=== PATIENT | female | born 2000 | race Caucasian/White ===

== ENCOUNTER 2023-07-10 13:45 | Emergency (ER) | payer OTHER ==
[~2023-07-10] VITALS: Ht 160 cm; Wt 53.4 kg
[2023-07-10 16:43] LABS: APPEARANCE, URINE HAZY (CLEAR); BACTERIA, URINE AUTO 1+ (NEGATIVE); BILIRUBIN, URINE AUTO NEGATIVE (NEGATIVE); BLOOD, URINE BLOOD NEGATIVE (NEGATIVE); COLOR, URINE YELLOW (YELLOW); GLUCOSE, URINE (UA) AUTO NEGATIVE (NEGATIVE); KETONE, URINE AUTO NEGATIVE (NEGATIVE); LEUKOCYTE ESTERASE, URINE AUTO 3+ (NEGATIVE); MUCUS, URINE SMALL (NEGATIVE); NITRITE, URINE AUTO NEGATIVE (NEGATIVE); PROTEIN, URINE AUTO 1+ mg/dL (NEGATIVE); RBC, URINE AUTO 10 /HPF (0-3); SPECIFIC GRAVITY URINE AUTO 1.021 (1.002-1.035); SQUAMOUS EPITHELIAL CELL UR AU 4 /HPF (0-6); UROBILINOGEN, URINE AUTO 0.2 mg/dL (0.0-2.0); WBC, URINE AUTO 6 /HPF (0-3)
[2023-07-10] MEDS ORDERED: MACR100C43 PO (17:17)
[2023-07-10] MEDS ORDERED: DIFL200T PO (17:17)
[2023-07-10 17:30] VITALS: BP 114/76; TEMP 96.8; O2SAT 98
== END 2023-07-10 17:39 | disposition home or self-care (01) ==
LOC: M ED 13:45
DX: N39.0 Urinary tract infection, site not specified (principal); B37.31 Acute candidiasis of vulva and vagina

== ENCOUNTER 2023-08-29 08:31 | Emergency (ER) | payer OTHER ==
[~2023-08-29] VITALS: Ht 160 cm; Wt 55.1 kg
[~2023-08-29 08:31] MED LIST: DIFL200T PO; MACR100C43 PO
[2023-08-29] MEDS ORDERED: BENZ200C70 PO (10:23)
[2023-08-29 10:38] VITALS: BP 102/62; TEMP 98; O2SAT 100
== END 2023-08-29 10:41 | disposition home or self-care (01) ==
LOC: M ED 08:31
DX: J06.9 Acute upper respiratory infection, unspecified (principal); B34.8 Other viral infections of unspecified site; Z79.899 Other long term (current) drug therapy

== ENCOUNTER 2024-11-24 09:26 | Emergency (ER) | payer OTHER ==
[~2024-11-24] VITALS: Ht 157.5 cm; Wt 52.6 kg
[~2024-11-24 09:26] MED LIST changes: +BENZ200C70 PO
[2024-11-24] MEDS: NS (Normal Saline) 0.9% 1,000 ML IV ONE (11:03)
[2024-11-24] MEDS: KETOROLAC 30 MG/ML 1 ML VIAL IV ONE (11:05)
[2024-11-24] MEDS: ACETAMINOPHEN *IV* 1,000 MG in IV 1 EA IV ONE (11:57)
[2024-11-24 12:42] VITALS: BP 99/59; TEMP 97.6; O2SAT 100
== END 2024-11-24 12:59 | disposition home or self-care (01) ==
LOC: M ED 10:18
DX: G43.909 Migraine, unspecified, not intractable, without status migrainosus (principal); Z79.899 Other long term (current) drug therapy
CPT/HCPCS: 96361; 96365; 96375; 99284; J0131; J1885; J2765